=== PATIENT | male | born 1935 | race Caucasian/White ===

== ENCOUNTER 2020-03-18 19:05 | Inpatient (IN) | payer OTHER, MEDICARE ==
[~2020-03-18] VITALS: Ht 188 cm; Wt 90.4 kg
[~2020-03-18 19:05] MED LIST: ALBU90OI INH; AMOCLA875 PO; ASPI81CH PO; BACITO TP; CENTRUM SILVER1 EAC2 PO; CHLO25B PO; FURO20 PO; Flovent Diskus50 MCG IH; Fludrocortison0.1 MG PO; HYDACE5325 PO; LEVO750 PO; LISI5 PO; LORA10 PO; LOSA25 PO; METO25 PO; MULVITMIND PO; NICO21TP; NORT25 PO; OMEP20ER PO; Omeprazole20 M1; SIMV40 PO; TOBR.3OPO
[2020-03-18 19:57] LABS: BASOPHILS ABSOLUTE AUTO 0.05 K/mm3 (0.00-0.23); BASOPHILS PERCENT AUTO 1 % (0-2); EOSINOPHILS ABSOLUTE AUTO 0.25 K/mm3 (0.00-0.68); EOSINOPHILS PERCENT AUTO 3 % (0-6); Hematocrit 36.6 % (37.0-53.0); Hemoglobin 11.8 g/dL (13.5-17.5); IMMATURE GRAN ABSOLUTE AUTO 0.04 K/mm3 (0.00-0.10); IMMATURE GRAN PERCENT AUTO 0 % (0-1); LYMPHOCYTES ABSOLUTE AUTO 2.56 K/mm3 (0.84-5.20); LYMPHOCYTES PERCENT AUTO 25 % (21-46); MONOCYTES ABSOLUTE AUTO 0.77 K/mm3 (0.16-1.47); MONOCYTES PERCENT AUTO 8 % (4-13); Mean Corpuscular HGB 30.4 pg (26.0-34.0); Mean Corpuscular HGB Conc 32.2 g/dL (31.5-36.5); Mean Corpuscular Volume 94 fL (80-100); Mean Platelet Volume 10.1 fL (9.1-12.4); NEUTROPHILS ABSOLUTE AUTO 6.42 K/mm3 (1.96-9.15); NEUTROPHILS PERCENT AUTO 64 % (41-73); Platelet Count 254 K/mm3 (150-400); RDW Coefficient Variation 14.6 % (11.7-14.2); RDW Standard Deviation 49.8 fL (35.1-46.3); Red Blood Cell Count 3.88 M/mm3 (4.30-5.90); White Blood Cell Count 10.09 K/mm3 (4.00-11.30)
[2020-03-18 20:10] LABS: International Normalized Ratio 1.19; Prothrombin Time Results 12.6 Sec (9.7-11.5)
[2020-03-18 20:19] LABS: Alanine Aminotransfer (ALT/SGP 21 U/L (12-78); Albumin, Blood 3.1 g/dL (3.4-5.0); Albumin/Globulin Ratio 0.7 (0.8-1.8); Alk Phos 73 U/L (50-136); Anion Gap 3 mmol/L (6-16); Aspartate Aminotrans (AST/SGOT 31 U/L (12-37); Bilirubin, Total 0.8 mg/dL (0.1-1.0); Blood Urea Nitrogen 17 mg/dL (8-24); Bun/Creatinine Ratio 18.4 (12.0-20.0); CO2, Blood 28 mmol/L (21-32); Calcium, Blood 8.8 mg/dL (8.5-10.1); Chloride, Blood 109 mmol/L (98-108); Creatinine, Blood 0.93 mg/dL (0.60-1.20); Globulin, Blood 4.2 g/dL (2.2-4.0); Glomerular Filtration Rate >60 (60-); Glucose, Blood 88 mg/dL (70-99); Potassium, Blood 4.6 mmol/L (3.5-5.5); Sodium, Blood 140 mmol/L (136-145); Total Protein, Blood 7.3 g/dL (6.4-8.2); Troponin I 0.027 ng/mL (0.000-0.040)
[2020-03-19] MEDS ORDERED: Cymbalta20 MG PO (01:32)
[2020-03-19] MEDS ORDERED: LIDO5TO TOP (01:34)
[2020-03-19] MEDS ORDERED: Lisinopril2.5 MG PO (01:35)
[2020-03-19] MEDS ORDERED: METO25 PO (01:36)
[2020-03-19] MEDS ORDERED: MIRALAX17 GM PO (01:38)
[2020-03-19 01:46] LABS: BASOPHILS ABSOLUTE AUTO 0.08 K/mm3 (0.00-0.23); BASOPHILS PERCENT AUTO 1 % (0-2); EOSINOPHILS ABSOLUTE AUTO 0.31 K/mm3 (0.00-0.68); EOSINOPHILS PERCENT AUTO 2 % (0-6); Hematocrit 40.5 % (37.0-53.0); Hemoglobin 12.6 g/dL (13.5-17.5); IMMATURE GRAN ABSOLUTE AUTO 0.11 K/mm3 (0.00-0.10); IMMATURE GRAN PERCENT AUTO 1 % (0-1); LYMPHOCYTES PERCENT AUTO 18 % (21-46); MONOCYTES ABSOLUTE AUTO 0.99 K/mm3 (0.16-1.47); MONOCYTES PERCENT AUTO 7 % (4-13); Mean Corpuscular HGB 30.1 pg (26.0-34.0); Mean Corpuscular HGB Conc 31.1 g/dL (31.5-36.5); Mean Corpuscular Volume 97 fL (80-100); Mean Platelet Volume 9.7 fL (9.1-12.4); NEUTROPHILS ABSOLUTE AUTO 10.62 K/mm3 (1.96-9.15); NEUTROPHILS PERCENT AUTO 72 % (41-73); Platelet Count 270 K/mm3 (150-400); RDW Coefficient Variation 14.6 % (11.7-14.2); RDW Standard Deviation 51.8 fL (35.1-46.3); Red Blood Cell Count 4.18 M/mm3 (4.30-5.90); White Blood Cell Count 14.81 K/mm3 (4.00-11.30)
[2020-03-19 02:03] LABS: Anion Gap 8 mmol/L (6-16); Blood Urea Nitrogen 17 mg/dL (8-24); Bun/Creatinine Ratio 16.7 (12.0-20.0); CO2, Blood 26 mmol/L (21-32); Calcium, Blood 8.6 mg/dL (8.5-10.1); Chloride, Blood 106 mmol/L (98-108); Creatinine, Blood 1.02 mg/dL (0.60-1.20); Glomerular Filtration Rate >60 (60-); Glucose, Blood 140 mg/dL (70-99); Magnesium, Blood 2.1 mg/dL (1.6-2.4); Potassium, Blood 4.1 mmol/L (3.5-5.5); Sodium, Blood 140 mmol/L (136-145); Troponin I 0.044 ng/mL (0.000-0.040)
--- NOTE | 2020-03-19 04:21 | NUR ---
SHIFT SUMMARY NEW ER ADMIT THIS SHIFT, A&O, PLEASANT, COOPERATIVE W/CARE, ST BY ASSIST W/FWW, URINAL ASSIST @ BEDSIDE/BSC, NO ACUTE CHANGES, NO C/O ANY KIND, SLEPT T/O THIS NIGHT, SLEEPING AT THIS TIME, CALL LIGHT IN REACH, BED ALARM ACTIVE, WILL CONT TO MONIOTOR UNTIL REPORT GIVEN TO DAY RN.
--- NOTE | 2020-03-19 14:54 | NUR ---
Echocardiogram using 0.75ml of Definity contrast performed by Vanessa Dennis under silverio and Jocelyn Braun's supervision.
--- NOTE | 2020-03-19 16:54 | NUR ---
SHIFT SUMMARY PT AXO, PLEASANT AND COOPERATIVE WITH CARE THOUGH [place]. SON PRESENT IN THE ROOM THROUGHOUT THE DAY AND HELPING NURSE TO COMMUNICATE WITH PATIENT. VSS. PT MEDICATED FOR PAIN PER EMAR. BED IN LOW POSITION, CALL LIGHT WITHIN REACH, BED ALARM ON. PT RESTING COMFORTABLY AT THIS TIME. SOB WITH REST AT TIMES. 95% ON 2L VIA NC, PT WANTS FOR COMFORT.
--- NOTE | 2020-03-19 23:09 | NUR ---
1944 84 Y/O MALE RESTING COMFORTABLY IN BED; CHEERFUL.
--- NOTE | 2020-03-20 03:37 | NUR ---
SHIFT SUMMARY: 84 Y/O MALE RESTED COMFORTABLY IN BED; CHEERFUL; DENIES CHEST PAIN OR NAUSEA; TELEMETRY REFLECTS SINUS ARRYTHMIA PER LEONEL--PRINT PRODUCTION COORDINATOR; WEARING O2 AT 2L/M PER NASAL CANNULA WITH SATS AVERAGING 93%; PT VERY HARD OF HEARING; ALERT AND ORIENTED X 4; HAPPY AND COOPERATIVE; BED ALARM APPLIED FOR SAFETY, BED LOW POSITION WITH CALL LIGHT AT SIDE.
--- NOTE | 2020-03-20 04:43 | NUR ---
EKG IN FRONT OF CHART
[2020-03-20 05:08] LABS: BASOPHILS ABSOLUTE AUTO 0.05 K/mm3 (0.00-0.23); BASOPHILS PERCENT AUTO 1 % (0-2); EOSINOPHILS ABSOLUTE AUTO 0.36 K/mm3 (0.00-0.68); EOSINOPHILS PERCENT AUTO 4 % (0-6); Hematocrit 37.8 % (37.0-53.0); Hemoglobin 12.1 g/dL (13.5-17.5); IMMATURE GRAN ABSOLUTE AUTO 0.03 K/mm3 (0.00-0.10); IMMATURE GRAN PERCENT AUTO 0 % (0-1); LYMPHOCYTES ABSOLUTE AUTO 2.85 K/mm3 (0.84-5.20); LYMPHOCYTES PERCENT AUTO 27 % (21-46); MONOCYTES ABSOLUTE AUTO 0.91 K/mm3 (0.16-1.47); MONOCYTES PERCENT AUTO 9 % (4-13); Mean Corpuscular HGB 30.3 pg (26.0-34.0); Mean Corpuscular Volume 95 fL (80-100); NEUTROPHILS ABSOLUTE AUTO 6.19 K/mm3 (1.96-9.15); NEUTROPHILS PERCENT AUTO 60 % (41-73); Platelet Count 235 K/mm3 (150-400); RDW Coefficient Variation 14.3 % (11.7-14.2); RDW Standard Deviation 49.2 fL (35.1-46.3); Red Blood Cell Count 3.99 M/mm3 (4.30-5.90); White Blood Cell Count 10.39 K/mm3 (4.00-11.30)
[2020-03-20 05:34] LABS: Anion Gap 5 mmol/L (6-16); Blood Urea Nitrogen 19 mg/dL (8-24); Bun/Creatinine Ratio 17.8 (12.0-20.0); CO2, Blood 29 mmol/L (21-32); Calcium, Blood 8.7 mg/dL (8.5-10.1); Chloride, Blood 105 mmol/L (98-108); Creatinine, Blood 1.07 mg/dL (0.60-1.20); Glomerular Filtration Rate >60 (60-); Glucose, Blood 111 mg/dL (70-99); Sodium, Blood 139 mmol/L (136-145)
--- NOTE | 2020-03-20 17:37 | NUR ---
Spoke with Bedside MICHEL Mitchell and discussed case. Pt and family would like to complete new AD and POLST. First visit with Pt and family fairly brief. Provided AD and POLST with brief education. Arrived back approximately 30 minutes later. Pt sitting in chair and appears comfortable. Pt's son at bedside. Engaged in therapeutic conversation regarding advanced care planning. Educated on disease process including trajectory of disease. Discussed the importance of routine conversations with Pt's PCP and developing multiple plans as disease process takes its coarse. Answered questions regarding AD and POLST. AD will be ready for notary on Sunday. POLST completed with Pt's wishes to be DNR and Limited Treatment. POLST hanging on Pt's white board for hospitalist to sign during AM rounds. Pt and family expresses appreciation of visit and reports no other concerns at this time. Palliative Care will obtain copies of POLST upon MD signature and deliver to medical records.
--- NOTE | 2020-03-20 17:54 | NUR ---
PATIENT AWAKE, ALERT AND OREINTED X4, ATE ALL THREE MEALS, AMBULATES WITH 1 ASSIST STANDBY, MAKES NO COMPLAINTS OF PAIN, R WRIST IV PATENT, NC AT 2L MOSTLY REFUSED THROUGHOUT THE DAY, COVID TEST NEG AND HAD VISIT WITH SON WHERE THEY UPDATED HIS ADVANCED DIRECTIVE ( WILL BE BY TOMORROW TO SIGN). LASIX CHANGED TO BID LAST DOSE 1800. LIGHT ON, BED IN LOW POSITION AND CALL LIGHT WITHIN REACH.
--- NOTE | 2020-03-21 04:03 | NUR ---
BAGGER AND STOCK HANDLER HELPER SUMMARY APPEARED TO SLEEP T/O THE NIGHT. DENIES PAIN. BREATHING IS UNLABORED. CURRENTLY ON RA. NO ACUTE CHANGES AT THIS TIME. BED IN LOWEST POSITION WITH CALL LIGHT IN REACH. WILL CONTINUE TO MONTIOR AND REPORT TO ONCOMING RN.
[2020-03-21] MEDS ORDERED: XARELTO20 MG PO ×2 (11:27)
== END 2020-03-21 11:55 | disposition home or self-care (01) | DRG 292 ==
LOC: ER 19:05 → MEDS 23:36
PROVIDERS: Emergency Medicine; Internal Medicine; ADMIT Internal Medicine
DX: I11.0 Hypertensive heart disease with heart failure (principal); J84.9 Interstitial pulmonary disease, unspecified; I50.23 Acute on chronic systolic (congestive) heart failure; J44.9 Chronic obstructive pulmonary disease, unspecified; I48.0 Paroxysmal atrial fibrillation; Z20.828 Contact with and (suspected) exposure to other viral communicable diseases; Z66 Do not resuscitate; K21.9 Gastro-esophageal reflux disease without esophagitis; D64.9 Anemia, unspecified; I95.9 Hypotension, unspecified; E78.5 Hyperlipidemia, unspecified; F32.9 Major depressive disorder, single episode, unspecified; M19.90 Unspecified osteoarthritis, unspecified site; I73.9 Peripheral vascular disease, unspecified; F17.210 Nicotine dependence, cigarettes, uncomplicated; Z85.46 Personal history of malignant neoplasm of prostate; Z85.51 Personal history of malignant neoplasm of bladder; Z79.82 Long term (current) use of aspirin; Z79.51 Long term (current) use of inhaled steroids
CPT/HCPCS: 36415; 71046; 80048; 80053; 83605; 83735; 84145; 84484; 85025; 85610; 87040; 93005; 93010; 94761; 96365; 96375; 99285-25; A9270; A9270-GY; C8929; J0696; J1650; J1940; Q9957; U0004

== ENCOUNTER 2020-04-06 14:20 | Inpatient (IN) | payer OTHER, MEDICARE ==
[~2020-04-06] VITALS: Ht 172.7 cm; Wt 84.6 kg
[~2020-04-06 14:20] MED LIST changes: +Aspirin EC81 MG PO; -CENTRUM SILVER1 EAC2 PO; +Cymbalta20 MG PO; -Flovent Diskus50 MCG IH; +Flovent Diskus50 MCG INH; +LIDO5TO TOP; +Lisinopril2.5 MG PO; +MIRALAX17 GM PO; +MULVITA PO; -Omeprazole20 M1; +XARELTO20 MG PO
[2020-04-06 14:35] LABS: Calcium, Ionized (POC) 0.99 mmol/L (1.10-1.46); Chloride (POC) 103 mmol/L (98-108); Creatinine (POC) 1.1 mg/dL (0.8-1.3); Glucose (ISTAT POC) 93 mg/dL (70-99); Hemoglobin (POC) 10.5 g/dL (13.5-17.5); Potassium (POC) 4.5 mmol/L (3.5-5.5); Sodium (POC) 136 mmol/L (135-148); Total CO2 (POC) 25 mmol/L (21-32)
[2020-04-06] MEDS ORDERED: FURO20 PO (14:40)
[2020-04-06 15:06] LABS: BASOPHILS ABSOLUTE AUTO 0.04 K/mm3 (0.00-0.23); BASOPHILS PERCENT AUTO 0 % (0-2); EOSINOPHILS ABSOLUTE AUTO 0.26 K/mm3 (0.00-0.68); EOSINOPHILS PERCENT AUTO 3 % (0-6); Hematocrit 32.2 % (37.0-53.0); Hemoglobin 10.1 g/dL (13.5-17.5); IMMATURE GRAN ABSOLUTE AUTO 0.03 K/mm3 (0.00-0.10); IMMATURE GRAN PERCENT AUTO 0 % (0-1); LYMPHOCYTES ABSOLUTE AUTO 2.57 K/mm3 (0.84-5.20); LYMPHOCYTES PERCENT AUTO 25 % (21-46); MONOCYTES ABSOLUTE AUTO 0.85 K/mm3 (0.16-1.47); MONOCYTES PERCENT AUTO 8 % (4-13); Mean Corpuscular HGB 30.5 pg (26.0-34.0); Mean Corpuscular HGB Conc 31.4 g/dL (31.5-36.5); Mean Corpuscular Volume 97 fL (80-100); Mean Platelet Volume 9.9 fL (9.1-12.4); NEUTROPHILS ABSOLUTE AUTO 6.72 K/mm3 (1.96-9.15); NEUTROPHILS PERCENT AUTO 64 % (41-73); Platelet Count 263 K/mm3 (150-400); RDW Coefficient Variation 14.2 % (11.7-14.2); RDW Standard Deviation 50.7 fL (35.1-46.3); Red Blood Cell Count 3.31 M/mm3 (4.30-5.90); White Blood Cell Count 10.47 K/mm3 (4.00-11.30)
[2020-04-06 15:17] LABS: Alanine Aminotransfer (ALT/SGP 19 U/L (12-78); Albumin/Globulin Ratio 0.7 (0.8-1.8); Alk Phos 73 U/L (50-136); Anion Gap 5 mmol/L (6-16); Aspartate Aminotrans (AST/SGOT 20 U/L (12-37); Bilirubin, Total 0.6 mg/dL (0.1-1.0); Blood Urea Nitrogen 27 mg/dL (8-24); CO2, Blood 27 mmol/L (21-32); Calcium, Blood 8.8 mg/dL (8.5-10.1); Chloride, Blood 106 mmol/L (98-108); Creatinine, Blood 1.08 mg/dL (0.60-1.20); Globulin, Blood 4.4 g/dL (2.2-4.0); Glomerular Filtration Rate >60 (60-); Glucose, Blood 86 mg/dL (70-99); Magnesium, Blood 2.2 mg/dL (1.6-2.4); Potassium, Blood 4.5 mmol/L (3.5-5.5); Sodium, Blood 138 mmol/L (136-145); Total Protein, Blood 7.4 g/dL (6.4-8.2)
[2020-04-06 15:20] LABS: International Normalized Ratio 1.24; Prothrombin Time Results 13.1 Sec (9.7-11.5)
[2020-04-06 16:22] LABS: Influenza A, PCR Negative (NEGATIVE); Influenza B, PCR Negative (NEGATIVE); Resp Syncytial Virus, PCR Negative (NEGATIVE); SARS-Cov-2 (COVID-19) PCR, MMC Negative (NEGATIVE)
[2020-04-06 16:44] LABS: Source, Urine Clean Catch
[2020-04-06 16:49] LABS: Appearance, Urine Clear (Clear); Bilirubin, Urine Neg (Neg); Blood, Urine 1+ (Neg); Color, Urine Yellow (P-Yellow); Glucose Qualitative, Urine Neg (Neg); Ketones, Urine Neg (Neg); Leukocyte Esterase, Urine Neg (Neg); Nitrite, Urine Neg (Neg); Protein, Urine Neg (Neg); Urobilinogen, Urine NORM (Normal)
[2020-04-06 16:58] LABS: Amorphous Light (0-Heavy); Bacteria Few /hpf; Squamous Epithelial Cells Rare /hpf (Few); White Blood Cells, Urine 0-2 /hpf (0-5)
--- NOTE | 2020-04-06 19:22 | NUR ---
ADMIT NOTE RECEIVED REPORT FROM MICHEL QURESHI IN ED. PT TO ROOM VIA GURNEY AT 1830; 1 PERSON ASSIST TRANSFER TO BED. PT SUSHIL HYPOTENSIVE WHILE SITTING ON SIFE OF BED; NOTIIFED VEENA INSPECTOR SET UP AND LAY OUT; BP ELEVATED WHILE PT LAYING DOWN; PER VEENA CONTINUE TO MONITOR. PT ORIENTED TO ROOM AND CALL LIGHT. EDCUATED ON FALL RISK AND TO USE CALL LIGHT BEFORE GETTING UP. PROTONIX GTT AND IV FLUDIS. PT SKIN PALE. DENIES PAIN AND SOB. REPORTS NONPRODUCTIVE COUGH AT BASELINE. OTHER VSS. NO OTHER ACUTE CHANGES NOTED DURING SHIFT. REPORT GIVEN TO ONCOMING RN.
[2020-04-06] MEDS ORDERED: LIDO5TO TOP (21:07)
[2020-04-06 21:29] LABS: Hematocrit 30.1 % (37.0-53.0); Hemoglobin 9.4 g/dL (13.5-17.5)
[2020-04-07 03:47] LABS: Hemoglobin 9.3 g/dL (13.5-17.5); Mean Corpuscular Volume 97 fL (80-100); Mean Platelet Volume 9.8 fL (9.1-12.4); Platelet Count 235 K/mm3 (150-400); RDW Coefficient Variation 14.3 % (11.7-14.2); RDW Standard Deviation 50.3 fL (35.1-46.3); White Blood Cell Count 10.43 K/mm3 (4.00-11.30)
--- NOTE | 2020-04-07 05:40 | NUR ---
shift summary pt rested comfortably through night. bp remained 120's/70's. no obvious signs of bleeding. hbg 9.3/hct 30.0. pt alert and oriented, hard of hearing. sats remained >90% on room air. verified tele with monitor room - nsr/aflutter. hr was sustaining 120's-130's for about 45min - md notified. instructed rn to give 0900 metoprolol early if sustains over 120 again. pt hr down to 100's at this time. no c/o chest pain/palpitations/discomfort. will continue to monitor. protonix gtt continue to infuse. voids to urinal. no bm. no c/o pain elsewhere. vss. call light within reach, bed in lowest position. will continue to monitor.
--- NOTE | 2020-04-07 17:19 | NUR ---
SUMMARY PT TRANSFERED UP FROM PCU, PT ORIENTED TO ROOM AND CALL SYSTEM, PT WAITING FOR UPPER ENDOSCOPY THIS EVENING, NO COMPLAINTS, WILL CONT TO MONITOR
--- NOTE | 2020-04-07 17:53 | NUR ---
PT TRANSFERED TO [facility] VIA GURNY FROM FLOOR. History, Chart, Medications and Allergies reviewed before start of procedure. Lungs clear T/O to Auscultation. Patient confirms NPO status and agrees with scheduled surgery. Pre-Op teaching done. Pt verbalizes understanding.
--- NOTE | 2020-04-07 18:15 | NUR ---
04/07/20 1815 TIN EDWARDS History, Chart, Medications and Allergies reviewed before start of procedure. 3-LEAD EKG REVIEWED WITH PHYSICIAN PRIOR TO START OF PROCEDURE. O2 VIA N/C INTACT THROUGHOUT SEDATION/PROCEDURE. MONITOR INTACT WITH CONTINUOUS PULSE OXIMETRY AND INTERMITTENT BP. MAC WITH DR. STOLL.
--- NOTE | 2020-04-07 18:37 | NUR ---
TRANSFER NOTED REPORT GIVEN TO BRAULIO ZARCO RN ASSUMING CARE OF PT. PT TRANSFERD TO ROOM 332 AT 1706. PT ORIENTED x2; PERSON AND PLACE, UNSURE DATE BUT STATES ITS . PT UP 1 PERSON ASSIST STANDING AT SIDE OF BED WITH URINAL. PT DENIES PAIN, CHEST PAIN, SOB, NAUSEA, AND DIZZINESS. NO BM DURING SHIFT. PT ON CLEAR LIQUIDS UNTIL AFTER LUNCH, THEN NPO. VSS. NO OTHER ACUTE CHANGES NOTED DURING SHIFT. PT TRANSFERED TO ROOM 332.
--- NOTE | 2020-04-08 03:06 | NUR ---
SHIFT SUMMARY PATIENT HAD NO ACUTE CHANGES OBSERVED. AXOX 2 FORGETFUL. ONE ASSIST TO BSC AND USES URINAL AT BEDSIDE WITH ASSIST. PIV REMAINS INTACT. CAUSTIC MIXER REPORTS A-FIB IN HIGH 90'S-LOW 100'S WITH PVC. DENIES PAIN, SOB, AND N/V. VSS/AFEBRILE. PATIENT ADVANCE TO REGULAR DIET. CALL LIGHT IN REACH. BED IN LOWEST POSITION. WILL CONTINUE TO MONITOR UNTIL DAY SHIFT NURSE ASSUMES CARE.
[2020-04-08 06:19] LABS: Hematocrit 31.6 % (37.0-53.0); Hemoglobin 9.9 g/dL (13.5-17.5)
--- NOTE | 2020-04-08 13:36 | NUR ---
PT DISCHARGED AT 1315 AOX3 AND COOPERATIVE OF CARE. PAPERS AND MEDICATION REVIEWED WITH PT AND WITH SON OVER THE PHONE. PT AMBULATING WELL IN ROOM AND DENIES ANY BLOOD IN STOOL TODAY. NO DISTRESS NOTED, [facility] TO CALL AND SCHEDULE FOLLOW UP APPOINTMENT.
== END 2020-04-08 13:19 | disposition home or self-care (01) | DRG 378 ==
LOC: ER 14:20 → PCU 14:21 → ER 17:30 → PCU 17:30 → MEDS 04-07 17:10
PROVIDERS: Emergency Medicine; Family Medicine; Student in an Organized Health Care Education/Training Program; ADMIT Hospitalist
PROC: 0DJ08ZZ Inspection of Upper Intestinal Tract, Via Natural or Artificial Opening Endoscopic (ICD-10-PCS; principal; 2020-04-07 17:45)
DX: K92.1 Melena (principal); D68.32 Hemorrhagic disorder due to extrinsic circulating anticoagulants; I50.22 Chronic systolic (congestive) heart failure; Z79.01 Long term (current) use of anticoagulants; J44.9 Chronic obstructive pulmonary disease, unspecified; K21.9 Gastro-esophageal reflux disease without esophagitis; F17.210 Nicotine dependence, cigarettes, uncomplicated; Z79.82 Long term (current) use of aspirin; I48.0 Paroxysmal atrial fibrillation; I11.0 Hypertensive heart disease with heart failure; I95.9 Hypotension, unspecified; F32.9 Major depressive disorder, single episode, unspecified; Z66 Do not resuscitate; Z20.828 Contact with and (suspected) exposure to other viral communicable diseases; T45.515A Adverse effect of anticoagulants, initial encounter; Y92.9 Unspecified place or not applicable
CPT/HCPCS: 0241U; 36415; 71045; 80047; 80053; 81001; 82272; 83735; 85014; 85018; 85025; 85027; 85610; 85730; 86850; 86900; 86901; 93005; 93010; 94760; 96365; 96366; 96376; 99285-25; A9270-GY; C9113; G0378; J2001; J2704; J7030; J7120